=== PATIENT | female | born 1930 | race Caucasian/White ===

== ENCOUNTER 2016-12-13 23:50 | Emergency (ER) | payer MEDICARE, OTHER ==
--- NOTE | 2016-12-14 00:05 | ED Physician Documentation ---
General Adult - HISTORIAN Historian: patient - HPI Chief Complaint: General Adult Further Comments: yes (86 year old female patient presents with complaint "not feeling well", states she had 103 temp this afternoon, took 2 aspirin.) - ROS CONST: fever, chills. denies: sweating, recent illness, weakness, weight loss EYES/ENT: nasal congestion. denies: problems with vision, sore throat, nasal drainage CVS/RESP: cough. denies: chest pain, shortness of breath GI/: none MS/SKIN/LYMPH: none NEURO/PSYCH: denies: headache, fainting, dizziness, tingling, numbness, difficulty walking, difficulty with speech, anxiety, depression, other - PAST HX Past History: none Allergies/Adverse Reactions: Allergies Allergy/AdvReac Type Severity Reaction Status Date / Time Penicillins Allergy Verified 12/14/16 00:11 Home Medications: Ambulatory Orders Medication Instructions Recorded Aspirin [Adult Low Dose Aspirin EC] 81 mg PO D 12/14/16 Azithromycin [Zithromax] 250 mg PO DAILY #6 tablet 12/14/16 - SOCIAL HX Smoking History: non-smoker - FAMILY HX Family History: No - REVIEWED ASSESSMENTS Nursing Assessment Reviewed: Yes Vitals Reviewed: Yes ED Results Lab/Radiology - Radiology Radiology Impressions: Chest, 1 view History: COUGH, FEVER Findings: The heart size is normal. Wire sternal sutures are in place. The lungs are clear. There is no pleural effusion or pneumothorax identified. The osseous structures are normal. Impression: 1. No acute pulmonary disease. - Orders Orders: ED Orders Category Date Time Status UA W/MICRO IF INDICATED Stat Lab 12/14/16 00:03 Ordered General Adult Physical Exam - PHYSICAL EXAM GENERAL APPEARANCE: mild distress EENT: eye inspection normal, ENT inspection normal, no signs of dehydration, ANGE, no nystagmus, TM's nml, pharyngeal erythema RESPIRATORY: no resp distress, chest non-tender, breath sounds normal, other ( cough) CVS: reg rate & rhythm, heart sounds normal, equal pulses, no murmur, no gallop , PMI nml, no JVD, no friction rub, 24 ABDOMEN: soft, no organomegaly, normal bowel sounds, no abdominal bruit, no distension SKIN: normal color, warm/dry, NR, INT, PAL, DR EXTREMITIES: non-tender, normal range of motion, no evidence of injury, no edema , J, 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 You may want to try Vicks rub on your chest and/or feet Cough drops as needed for cough and sore throat. Increase your fluid intake juices, hot tea, non-caffeinated beverages Vitamin C may be helpful in decreasing the length of your cold. Use a humidifier in the room where you sleep. You can also sit in a steam filled bathroom 1-2 times a day. Tylenol every 4 hours 650mg -100mg (do not exceed 4000mg in 24 hours) as needed for fever, pain and body aches. Alternate with Ibuprofen Ibuprofen 600-800mg every 6 hours as needed for fever, pain and body aches. See your primary care doctor if your symptoms become worse or do not improve in the next 2-3 days. Home Medications: Ambulatory Orders Aspirin [Adult Low Dose Aspirin EC] 81 mg PO D 12/14/16 Azithromycin [Zithromax] 250 mg PO DAILY #6 tablet 12/14/16 Condition: Stable Disposition: 01 HOME, SELF-CARE Decision to Admit: NO Decision Time: :02
[2016-12-14 00:46] LABS: eGFR (African) > 60; eGFR (Non-African) > 60
[2016-12-14 00:54] LABS: BASOPHILS % 0.2 (0.0-1.5); EOSINOPHILS % 2.1 % (0.0-6.8); LYMPHOCYTES # 0.6 # k/uL (0.6-4.0); MEAN CORPUSCULAR HEMOGLOBIN 29.9 pg (28.0-34.0); MONOCYTES # 0.2 # k/uL (0.0-0.9); MONOCYTES % 5.6 % (0.0-11.0); NEUTROPHILS # 3.2 # k/uL (1.4-7.7)
[2016-12-14] MEDS ORDERED: guaiFENesin/CODEINE PHOS 30ML BOTTLE PO ONE (01:07)
[2016-12-14 01:26] VITALS: BP 158/72
--- NOTE | 2016-12-14 06:12 | Diagnostic Imaging Report ---
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 Wire sternal sutures are in place. The lungs are clear. There is no pleural effusion or pneumothorax identified. The osseous structures are normal. Impression: 1. No acute pulmonary disease. ~ Electronically signed on Dec 14, 2016 12:40:21 AM CORRECTIONAL CASE RECORDS SUPERVISOR by: Nadir GIBBS
[2016-12-14 07:14] LABS: APPEARANCE,URINE CLEAR (CLEAR); COLOR,URINE YELLOW (YELLOW); OCCULT BLOOD,URINE 1+ (NEGATIVE); PH URINE 5.5 (5.0 - 8.0); UROBILINOGEN URINE 0.2 Eu (0.2-1.0)
== END 2016-12-14 01:10 | disposition home or self-care (01) ==
LOC: ED 23:50
DX: J02.9 Acute pharyngitis, unspecified (principal); R05 Cough
CPT/HCPCS: 71010; 80053; 81002; 85025; 87086; 87400; 99283